=== PATIENT | female | born 1975 | race Caucasian/White ===

== ENCOUNTER 2017-04-21 22:28 | Emergency (ER) | payer MEDICAID ==
[~2017-04-21] VITALS: Ht 149.9 cm; Wt 43.1 kg
[~2017-04-21 22:28] MED LIST: CABERGOLINE0.5 MG PO; CEPHALEXIN250 MG PO; CIPROFLOXACIN500 M2 ORAL; IBUPROFEN400 MG ORAL; MAALOX MAXIMUM355 M1 PO; METRONIDAZOLE500 MG ORAL; NAPROXEN500 M2 ORAL; NORCO 5-325 TA1 EACH ORAL; RANITIDINE HCL150 MG ORAL; UNOBMED; ZOFRAN ODT4 MG ORAL
[2017-04-21 22:45] VITALS: BP 107/75
[2017-04-21] MEDS ORDERED: ATARAX50 MG ORAL (22:52)
--- NOTE | 2017-04-21 22:59 | Emergency Room Report ---
History of Present Illness General Chief Complaint: Skin Rash/Abscess Source: Patient Present Illness HPI 41-year-old female, no significant past medical history, presenting with itchy rash body or 5 days. Patient states the rash was on chest and arms, states it is very itchy. She has been using Benadryl and a cream [id number] without much relief. No respiratory symptoms, no difficulty breathing or throat swelling. No fever no chills. No sick contacts or recent travel. No new detergents Allergies: Coded Allergies: No Known Allergies (Unverified , 08/01/12) Patient History Past Medical History: see triage record Past Surgical History: none Pertinent Family History: none Reviewed Nursing Documentation: PMH: Agreed, PSxH: Agreed Nursing Documentation-PMH Hx Cardiac Problems: No - HYSTERECTOMY, GALLBLADDER STONES, Review of Systems All Other Systems: negative except mentioned in HPI Physical Exam Vital Signs Date Time Temp Pulse Resp B/P (MAP) Pulse Ox O2 Delivery O2 Flow Rate FiO2 04/21/17 22:31 98.2 69 16 107/75 98 Room Air Sp02 EP Interpretation: reviewed, normal General Appearance: normal inspection, well appearing, no apparent distress, alert, GCS 15, non-toxic Head: normocephalic, atraumatic Eyes: bilateral eye normal inspection, bilateral eye PERRL, bilateral eye EOMI ENT: normal ENT inspection, normal pharynx, normal voice, moist mucus membranes Neck: normal inspection, full range of motion, supple Respiratory: normal inspection, lungs clear, normal breath sounds, no respiratory distress, no retraction, no wheezing, speaking full sentences, chest symmetrical Cardiovascular #1: normal inspection, regular rate, rhythm, normal capillary refill Cardiovascular #2: 2+ radial (R), 2+ radial (L) Gastrointestinal: normal inspection, non tender, soft, non-distended, no guarding Musculoskeletal: normal inspection, back normal, normal range of motion, non- tender Neurologic: normal inspection, alert, oriented x3, responsive, motor strength/ tone normal, sensory intact, normal gait, speech normal Psychiatric: normal inspection, judgement/insight normal, memory normal Skin: warm/dry, well hydrated, normal turgor, other - Macular scaly rash noted on the forearms and chest, small and circular, less than 1 cm, nontender, pruritic scratch [place] noted. No purulent drainage. No signs of cellulitis Medical Decision Making Diagnostic Impression: Primary Impression: Rash and nonspecific skin eruption ER Course 41-year-old female with a rash to arms and chest for 5 days DDX: Nonspecific itchy rash: Eczema, allergic reaction Plan: Hydroxyzine, Decadron ER course: Patient has remained stable during ED stay. No respiratory symptoms, patient does not appear toxic Disposition: Patient is to be discharged to home. Prescriptions given are hydroxyzine Patient is instructed to follow up with their primary care doctor within 5 days. Strict return precautions discussed with patient such as fever, chills, worsening/severe rash, swelling of throat SOB, nausea, vomiting, which may indicate severe illness. Patient verbalizes understanding and agrees with plan. Please note that this Emergency Department Report was dictated using [employer] technology software, occasionally this can lead to erroneous entry secondary to interpretation by the dictation equipment Last Vital Signs Date Time Temp Pulse Resp B/P (MAP) Pulse Ox O2 Delivery O2 Flow Rate FiO2 04/21/17 22:31 98.2 69 16 107/75 98 Room Air Disposition: HOME, SELF-CARE Condition: Improved Scripts Hydroxyzine HCl (Hydroxyzine Pamoate) 50 Mg Capsule 50 MG ORAL FOUR TIMES A DAY, #30 TAB 0 Refills Prov: Christiano Manuel M.D. 04/21/17 Patient Instructions: Rash Additional Instructions: Please followup with your doctor in one week without fail Christiano Manuel M.D. Apr 21, 2017 22:59
[2017-04-21] MEDS ORDERED: HydrOXYzine tab 25 MG TAB ORAL ONE (23:00)
[2017-04-21] MEDS ORDERED: Dexamethasone 4mg/ml vial IM ONE (23:00)
[2017-04-21 23:05] VITALS: BP 107/75
[2017-04-22 02:39] VITALS: BP 107/75
== END 2017-04-21 23:05 | disposition home or self-care (01) ==
LOC: EMR 22:43
DX: R21 Rash and other nonspecific skin eruption (principal); Z90.710 Acquired absence of both cervix and uterus
CPT/HCPCS: 96372; 99283; J1100

== ENCOUNTER 2017-08-25 23:51 | Emergency (ER) | payer MEDICAID ==
[~2017-08-25] VITALS: Ht 153 cm; Wt 45.4 kg
[~2017-08-25 23:51] MED LIST changes: +ATARAX50 MG ORAL
[2017-08-26] MEDS ORDERED: NKM
[2017-08-26 00:12] VITALS: BP 123/78
[2017-08-26] MEDS ORDERED: PREDNISONE20 MG ORAL (00:29)
[2017-08-26] MEDS ORDERED: IBUPROFEN600 MG ORAL (00:29)
--- NOTE | 2017-08-26 00:29 | Emergency Room Report ---
History of Present Illness General Chief Complaint: Pain Source: Patient Present Illness HPI This is a 42-year-old female with no past medical history. She presents with chief complaint of arm pain. Onset last night. She said that both arms are swollen. No itching. Just painful. Also with throat pain and back pain. No fever chills but no cough or congestion. Denies any trauma. Pain was 8 out of 10. Allergies: Coded Allergies: No Known Allergies (Unverified , 08/01/12) Patient History Past Medical History: see triage record, old chart reviewed Past Surgical History: none Pertinent Family History: none Social History: Denies: smoking Now: No Immunizations: other Reviewed Nursing Documentation: PMH: Agreed; PSxH: Agreed Nursing Documentation-PMH Hx Cardiac Problems: No - HYSTERECTOMY, GALLBLADDER STONES, Review of Systems Eye: Denies: eye pain, blurred vision ENT: Denies: ear pain, nose congestion, throat swelling Respiratory: Denies: cough, shortness of breath Cardiovascular: Denies: chest pain, palpitations Gastrointestinal: Denies: abdominal pain, diarrhea, nausea, vomiting Musculoskeletal: Reports: muscle pain; Denies: back pain, joint pain Skin: Denies: rash Neurological: Denies: headache, numbness Endocrine: Denies: increased thirst, increased urine Hematologic/Lymphatic: Denies: easy bruising All Other Systems: negative except mentioned in HPI Physical Exam Vital Signs Date Time Temp Pulse Resp B/P (MAP) Pulse Ox O2 Delivery O2 Flow Rate FiO2 08/25/17 23:55 97.4 62 16 123/78 97 Room Air 97.3 vitals normal Sp02 EP Interpretation: reviewed, normal General Appearance: well appearing, no apparent distress, alert Head: normocephalic, atraumatic Eyes: bilateral eye PERRL, bilateral eye EOMI ENT: hearing grossly normal, normal pharynx Neck: full range of motion, supple, no meningismus Respiratory: chest non-tender, lungs clear, normal breath sounds Cardiovascular #1: regular rate, rhythm, no murmur Gastrointestinal: normal bowel sounds, non tender, no mass, no organomegaly, no bruit, non-distended Musculoskeletal: back normal, gait/station normal, normal range of motion Psychiatric: mood/affect normal Skin: warm/dry Medical Decision Making Diagnostic Impression: Primary Impression: Myalgia ER Course Patient presents with myalgia. No evidence of infection. This could be rheumatological in nature. Could be viral infection. No evidence of bacterial infection. We'll discharge home. Last Vital Signs Date Time Temp Pulse Resp B/P (MAP) Pulse Ox O2 Delivery O2 Flow Rate FiO2 08/26/17 00:16 97.3 08/26/17 00:12 62 16 123/78 97 Room Air Status: improved Disposition: HOME, SELF-CARE Condition: Stable Scripts Prednisone* (PREDNISONE*) 20 Mg Tablet 40 MG ORAL DAILY, #10 TAB Prov: NEL HADDAD M.D. 08/26/17 Ibuprofen* (MOTRIN*) 600 Mg Tablet 600 MG ORAL THREE TIMES A DAY, #30 TAB 0 Refills Prov: NLE HADDAD M.D. 08/26/17 Referrals: NOT CHOSEN [facility]/,REFERRING (PCP) Additional Instructions: Follow-up with your doctor in 7 days. Return if symptom worsen. NEL HADDAD M.D. August 26, 2017 00:29
[2017-08-26 00:40] VITALS: BP 123/78
== END 2017-08-26 00:41 | disposition home or self-care (01) ==
LOC: EMR 08-26 00:19
DX: M79.1 Myalgia (principal); Z90.710 Acquired absence of both cervix and uterus
CPT/HCPCS: 99284

== ENCOUNTER 2018-12-28 10:40 | Emergency (ER) | payer MEDICAID ==
[~2018-12-28] VITALS: Ht 149.9 cm; Wt 49.9 kg
[~2018-12-28 10:40] MED LIST changes: +IBUPROFEN600 MG ORAL; +NKM; +PREDNISONE20 MG ORAL
[2018-12-28 11:12] VITALS: BP 104/63
--- NOTE | 2018-12-28 12:07 | Diagnostic Imaging Report ---
Indication: pain in finger. trauma Findings: 3 views of the right thumb obtained. No acute fractures, malalignment, erosions, or periosteal reaction are seen. Soft tissues are unremarkable. Impression: No acute findings.
--- NOTE | 2018-12-28 12:19 | Emergency Room Report ---
History of Present Illness General Chief Complaint: Upper Extremity Injury Source: Patient Present Illness HPI 43-year-old female with no significant past medical history here with her daughter complaining of 1 week of pain and swelling in her right thumb. Her finger was smashed in the car door 1 week ago. Subungual hematoma is noted however is dried blood. Nailbed still attached. Patient is rating the pain 10 out of 10 without radiation. Denies tingling and numbness. Has not taken medication for pain. Has full range of motion. Denies chest pain, shortness of breath, palpitation, or other associated symptoms. No signs of infection noted Allergies: Coded Allergies: No Known Allergies (Unverified , 08/01/12) Patient History Past Medical History: see triage record Past Surgical History: unable to obtain Pertinent Family History: none Now: No Immunizations: UTD Reviewed Nursing Documentation: PMH: Agreed; PSxH: Agreed Nursing Documentation-PMH Past Medical History: No History, Except For Hx Cardiac Problems: No - HYSTERECTOMY, GALLBLADDER STONES, Review of Systems All Other Systems: negative except mentioned in HPI Physical Exam Vital Signs Date Time Temp Pulse Resp B/P (MAP) Pulse Ox O2 Delivery O2 Flow Rate FiO2 12/28/18 10:51 98.4 67 15 104/63 (77) 99 Room Air Sp02 EP Interpretation: reviewed, normal General Appearance: no apparent distress, alert, GCS 15, non-toxic Head: normocephalic, atraumatic Eyes: bilateral eye normal inspection, bilateral eye PERRL ENT: hearing grossly normal, normal pharynx, no angioedema, normal voice Neck: full range of motion, supple/symm/no masses Respiratory: chest non-tender, lungs clear, normal breath sounds, speaking full sentences Cardiovascular #1: regular rate, rhythm, no edema Cardiovascular #2: 2+ radial (R), 2+ radial (L) Gastrointestinal: normal bowel sounds, non tender, soft, non-distended, no guarding, no rebound Genitourinary: normal inspection, no CVA tenderness Musculoskeletal: back normal, gait/station normal, normal range of motion, non- tender, no calf tenderness, other - Subungual hematoma of right thumb with dried blood, and right thumb tender to palpation at DIP Neurologic: alert, oriented x3, responsive, motor strength/tone normal, sensory intact, speech normal Psychiatric: judgement/insight normal, memory normal, mood/affect normal, no suicidal/homicidal ideation Skin: no rash, other - Subungual hematoma right thumb Lymphatic: no adenopathy Procedures Splinting Splinting : Consent: Verbal Location: Thumb Hand-Made Type: plaster Splint: thumb spica Pre-Proc Neuro Vasc Exam: normal Post-Proc Neuro Vasc Exam: normal Patient Tolerated: Well Complications: None Additional Procedure Procedure Narrative Subungual hematoma release Medical Decision Making PA Attestation All my diagnosis and treatment plans were reviewed ad discussed with my supervising physician Dr. Montero Diagnostic Impression: Primary Impression: Subungual hematoma Additional Impressions: Thumb fracture Crushing injury of finger ER Course 43-year-old female with no significant past medical history here with her daughter complaining of 1 week of pain and swelling in her right thumb. Her finger was smashed in the car door 1 week ago. Subungual hematoma is noted however is dried blood. Nailbed still attached. Patient is rating the pain 10 out of 10 without radiation. Denies tingling and numbness. Has not taken medication for pain. Has full range of motion. Denies chest pain, shortness of breath, palpitation, or other associated symptoms. No signs of infection noted Ddx considered but are not limited to : Finger fracture versus crushing injury versus sprain versus strain versus subungual hematoma Vital signs: are WNL, pt. is afebrile H&PE are most consistent with:Subungual hematoma from fracture ORDERS: Finger x-ray, ibuprofen, Tylenol 3 ED INTERVENTIONS: Thumb spica, subungual hematoma release DISCHARGE: At this time pt. is stable for d/c to home. Will provide printed patient care instructions, and any necessary prescriptions. Care plan and follow up instructions have been discussed with the patient prior to discharge. Patient to follow-up with claim benefit specialist keep splint on if worsening symptoms return to emergency room Other X-Ray Diagnostic Results Other X-Ray Diagnostic Results : X-Ray ordered: Right thumb # of Views/Limited Vs Complete: 3 View Indication: Pain EP Interpretation: Yes PA Xray: Interpretation reviewed, by supervising MD, and agrees with findings. Interpretation: no dislocation, no soft tissue swelling, other - Possible fracture of right thumb at the DIP Impression: Other - Fracture of right thumb at the DIP Electronically Signed by: Scotty Weinberg PA-C Last Vital Signs Date Time Temp Pulse Resp B/P (MAP) Pulse Ox O2 Delivery O2 Flow Rate FiO2 12/28/18 11:12 98.4 87 15 104/63 99 Room Air Disposition: HOME, SELF-CARE Condition: Stable Scripts Ibuprofen (Ibu) 800 Mg Tablet 800 MG PO TID, #30 TAB Prov: Scotty Concepcion 12/28/18 Acetaminophen With Codeine (T#3) (TYLENOL #3 TAB*) Y Tab 1 TAB ORAL BEDTIME PRN for For Pain for 4 Days, #4 TAB Prov: Scotty Concepcion 12/28/18 Referrals: NOT CHOSEN [facility]/,REFERRING (PCP) Patient Instructions: Finger Fracture, [id number], Subungual Hematoma, Easy- to-Read Additional Instructions: Take medication as directed follow-up with your primary care provider and or so if worsening symptoms return to the emergency room Scotty Concepcion Dec 28, 2018 12:19
[2018-12-28] MEDS ORDERED: ACETAMINOPHEN-1 EAC1 ORAL (12:20)
[2018-12-28] MEDS ORDERED: IBU800 MG PO (12:20)
[2018-12-28 12:30] VITALS: BP 104/63
== END 2018-12-28 12:30 | disposition home or self-care (01) ==
LOC: EMR 11:13
DX: S62.521A Displaced fracture of distal phalanx of right thumb, initial encounter for closed fracture (principal); S60.111A Contusion of right thumb with damage to nail, initial encounter; Z90.710 Acquired absence of both cervix and uterus; W23.0XXA Caught, crushed, jammed, or pinched between moving objects, initial encounter; Y92.810 Car as the place of occurrence of the external cause
CPT/HCPCS: 11740; 29125; 73140; Z7502; 29130; 99283

== ENCOUNTER 2019-02-11 17:48 | Emergency (ER) | payer MEDICAID ==
[~2019-02-11] VITALS: Ht 144.8 cm; Wt 45.4 kg
[~2019-02-11 17:48] MED LIST changes: +ACETAMINOPHEN-1 EAC1 ORAL; +IBU800 MG PO
[2019-02-11] MEDS ORDERED: FOLIC ACID0.4 MG ORAL (17:55)
[2019-02-11] MEDS ORDERED: VITAMIN D400 INTLU ORAL (17:55)
[2019-02-11] MEDS ORDERED: VITAMIN C500 M1 ORAL (17:55)
[2019-02-11 18:01] VITALS: BP 120/63
--- NOTE | 2019-02-11 18:02 | NUR ---
ED Nurse Note: pt walked in to ED due to headache and back pain for last 3 days. denies any trauma or injury. pt also c/o nausea. AAO x4. respirations even and non-labored noted. pt feels better with dim light. will wait for the further order.
[2019-02-11] MEDS ORDERED: DiphenhydrAMINE 50mg/ml Inj IVP ONE (18:45)
--- NOTE | 2019-02-11 19:03 | NUR ---
HAND-OFF: Report given to LU andersen.
--- NOTE | 2019-02-11 19:41 | NUR ---
ED Nurse Note:urine sent to labs
[2019-02-11 19:54] LABS: APPEARANCE,URINE CLEAR; BILIRUBIN, URINE NEGATIVE (NEGATIVE); COLOR,URINE PALE YELLOW; GLUCOSE, URINE (UA) NEGATIVE (NEGATIVE); KETONES,URINE NEGATIVE (NEGATIVE); LEUKOCYTE ESTERASE ,URINE NEGATIVE (NEGATIVE); NITRITE,URINE NEGATIVE (NEGATIVE); PH,URINE 6 (4.5-8.0); PROTEIN,URINE NEGATIVE (NEGATIVE); UROBILINOGEN,URINE NORMAL MG/DL (0.0-1.0)
--- NOTE | 2019-02-11 20:10 | Emergency Room Report ---
History of Present Illness General Chief Complaint: Headache Source: Patient Present Illness HPI 43-year-old female presents to the emergency department complaining of 6 out of 10 severity headache x2 days in addition to body aches primarily in her back and neck. Patient denies neck stiffness, fevers or chills. Patient reports some photophobia as well as hyperacusis. Patient reports she has a history of pituitary tumor which was diagnosed 2 years ago and states that she has been having follow-up and was told that it is a small tumor. Patient states her last MRI was 3 months ago. Patient reports generalized weakness she denies cough, nasal congestion or rhinorrhea. She reports for the last 3 days she has had nausea, decrease of appetite and increasing fatigue. Patient denies vomiting she reports some dizziness upon standing but denies vertigo. She denies urinary frequency, urgency, dysuria or hematuria. She denies sudden onset of her symptoms and states that her symptoms slowly progressed. She reports fatigue was her initial symptom. She denies or suspicion for . She reports hx of HTN, and hysterectomy s/p uterine cancer. Denies night sweats or significant changes in weight. Allergies: Coded Allergies: No Known Allergies (Unverified , 08/01/12) Patient History Past Medical History: see triage record Past Surgical History: none Pertinent Family History: none Now: No Reviewed Nursing Documentation: PMH: Agreed; PSxH: Agreed Nursing Documentation-PMH Hx Cardiac Problems: No - HYSTERECTOMY, GALLBLADDER STONES, Review of Systems All Other Systems: negative except mentioned in HPI Physical Exam Vital Signs Date Time Temp Pulse Resp B/P (MAP) Pulse Ox O2 Delivery O2 Flow Rate FiO2 02/11/19 17:52 97.9 70 15 120/63 (82) 99 Room Air Sp02 EP Interpretation: reviewed, normal General Appearance: no apparent distress, alert, GCS 15, non-toxic Head: normocephalic, atraumatic Eyes: bilateral eye normal inspection, bilateral eye PERRL, bilateral eye EOMI , bilateral eye other - eyes able to cross midline, no nystagmus ENT: hearing grossly normal, normal voice Neck: full range of motion, no meningismus Respiratory: lungs clear, normal breath sounds, speaking full sentences Cardiovascular #1: regular rate, rhythm Gastrointestinal: normal bowel sounds, non tender, soft, non-distended, no guarding Genitourinary: normal inspection, no CVA tenderness Musculoskeletal: back normal, gait/station normal, normal range of motion, non- tender, other - normal straight leg raise. Neurologic: alert, oriented x3, responsive, motor strength/tone normal, sensory intact, normal gait, speech normal, grossly normal Psychiatric: judgement/insight normal Skin: no rash, normal inspection, warm/dry Lymphatic: no adenopathy Medical Decision Making PA Attestation Dr. Pierre is my supervising Physician whom patient management has been discussed with. Diagnostic Impression: Primary Impression: Headache Qualified Codes: R51 - Headache Additional Impressions: Body aches History of pituitary tumor ER Course 43-year-old female presents to the emergency department complaining of 6 out of 10 severity headache x2 days in addition to body aches primarily in her back and neck. Patient denies neck stiffness, fevers or chills. Patient reports some photophobia as well as hyperacusis. Patient reports she has a history of pituitary tumor which was diagnosed 2 years ago and states that she has been having follow-up and was told that it is a small tumor. Patient states her last MRI was 3 months ago. Patient reports generalized weakness she denies cough, nasal congestion or rhinorrhea. She reports for the last 3 days she has had nausea, decrease of appetite and increasing fatigue. Patient denies vomiting she reports some dizziness upon standing but denies vertigo. She denies urinary frequency, urgency, dysuria or hematuria. She denies sudden onset of her symptoms and states that her symptoms slowly progressed. She reports fatigue was her initial symptom. She denies or suspicion for . She reports hx of HTN, and hysterectomy s/p uterine cancer. Denies night sweats or significant changes in weight. Ddx considered but are not limited to migraine, SAH, Pseudomotor Cerebri,, Mass lesion, Cluster TOMLINSON, Tension TOMLINSON, Post lumbar puncture TOMLINSON. Vital signs: are WNL, pt. is afebrile H&PE are most consistent with migraine headache ORDERS: - UA: WNL -Urine Hcg: Negative Imaging discussed with pt. No focal neurological deficits. collaborative decision with pt. to defer CT imaging, will re-evaluate need after ED interventions. ED INTERVENTIONS: -1 Liter NS -Zofran 4mg IV - Compazine PO -IV Toradol -Benadryl IV -Excedrin Migraine Patient reports that with above interventions her pain has completely resolved. Patient states that she is feeling much better and feels comfortable going home and continuing any evaluation or care as an outpatient. Patient was given strict ED return precautions for worsening or new symptoms. DISCHARGE: At this time pt. is stable for d/c to home. Will provide printed patient care instructions, and any necessary prescriptions. Care plan and follow up instructions have been discussed with the patient prior to discharge. Labs Test 02/11/19 19:30 Urine Color Pale yellow Urine Appearance Clear Urine pH 6 (4.5-8.0) Urine Specific Jean 1.010 (1.005-1.035) Urine Protein Negative (NEGATIVE) Urine Glucose (UA) Negative (NEGATIVE) Urine Ketones Negative (NEGATIVE) Urine Blood Negative (NEGATIVE) Urine Nitrite Negative (NEGATIVE) Urine Bilirubin Negative (NEGATIVE) Urine Urobilinogen Normal MG/DL (0.0-1.0) Urine Leukocyte Esterase Negative (NEGATIVE) Urine HCG, Qualitative Negative (NEGATIVE) Last Vital Signs Date Time Temp Pulse Resp B/P (MAP) Pulse Ox O2 Delivery O2 Flow Rate FiO2 02/11/19 18:01 97.9 70 15 120/63 99 Room Air Disposition: HOME, SELF-CARE Condition: Stable Scripts Aspirin/Acetaminophen/Caffeine (EXCEDRIN MIGRAINE GELTAB) 1 Each Tablet 1 EACH PO Q6HR for for Headaches, #30 TAB Prov: Lulú Hernández 02/11/19 Referrals: NOT CHOSEN [facility]/MD,REFERRING (PCP) Departure Forms: Return to Work Return to Work Date: Feb 15, 2019 Work Restrictions: None Other Restrictions: May return Sooner if Symptoms have resolved. Return to Full Activity: Feb 15, 2019 Patient Instructions: General Headache Without Cause Additional Instructions: Take medications as directed. Follow up with a Primary Care Provider in 3-5 days For a referral to have NEUROLOGIST Evaluation, even if your symptoms have resolved. --Please review list of primary care clinics, if you do not already have a primary care provider Return sooner to ED if new symptoms occur, or current symptoms become worse. - Please note that this Emergency Department Report was dictated using [employer] technology software, occasionally this can lead to erroneous entry secondary to interpretation by the dictation equipment. Lulú Hernández Feb 11, 2019 20:10
[2019-02-11] MEDS ORDERED: EXCEDRIN MIGRA1 EACH PO (20:11)
[2019-02-11] MEDS ORDERED: Excedrin Migraine tab ORAL ONE (20:15)
[2019-02-11 20:30] VITALS: BP 120/63
--- NOTE | 2019-02-11 20:30 | NUR ---
ER DISCHARGE NOTE: Patient is cleared to be discharged per ERMD, pt is aox4, on room air, with stable vital signs. pt was given dc and prescription instructions, pt was able to verbalize understanding, pt id band and iv site removed without complications. pt is able to ambulate with steady gait. pt took all belongings.
== END 2019-02-11 20:30 | disposition home or self-care (01) ==
LOC: EMR 18:20
DX: R51 Headache (principal); M79.10 Myalgia, unspecified site; Z86.03 Personal history of neoplasm of uncertain behavior; Z90.710 Acquired absence of both cervix and uterus; I10 Essential (primary) hypertension; D44.3 Neoplasm of uncertain behavior of pituitary gland; Z85.42 Personal history of malignant neoplasm of other parts of uterus; Z32.02 Encounter for pregnancy test, result negative
CPT/HCPCS: 81003; 81025; 96361; 96374; J1200; Z7502; 99284; J7030

== ENCOUNTER 2019-06-02 21:04 | Emergency (ER) | payer MEDICAID ==
[~2019-06-02] VITALS: Ht 127 cm; Wt 38.6 kg
[~2019-06-02 21:04] MED LIST changes: +EXCEDRIN MIGRA1 EACH PO; +FOLIC ACID0.4 MG ORAL; +VITAMIN C500 M1 ORAL; +VITAMIN D400 INTLU ORAL
[2019-06-02 21:23] VITALS: BP 128/72
--- NOTE | 2019-06-02 21:23 | NUR ---
ED Nurse Note: Patient walked into ED from home d/t right lower leg shooting pain from hip to lower leg. Patient aao x 4 and ambulatory. Patient states walking and doing any activity is painful. Patient rates pain 10/10. Patient stable upon assessment.
--- NOTE | 2019-06-02 21:39 | NUR ---
ED Nurse Note: ERMD at bedside.
--- NOTE | 2019-06-02 21:55 | NUR ---
ED Nurse Note: Right AC 20g IV initiated, asymptomatic, intact, and patent. Blood sample, urine, and flu swab collected and sent to lab.
[2019-06-02 22:09] LABS: BASOPHILS % (AUTO) 0.8 % (0.0-2.0); EOSINOPHILS % (AUTO) 0.7 % (0.0-3.0); HEMATOCRIT 40.5 % (37.0-47.0); HEMOGLOBIN 13.8 G/DL (12.0-16.0); LYMPHOCYTES % (AUTO) 26.4 % (20.0-45.0); MEAN CORPUSCULAR VOLUME 90 FL (80-99); MONOCYTES % (AUTO) 5.5 % (1.0-10.0); NEUTROPHILS % (AUTO) 66.6 % (45.0-75.0); PLATELET COUNT 266 K/UL (150-450); RED BLOOD COUNT 4.48 M/UL (4.20-5.40); RED CELL DISTRIBUTION WIDTH 11.7 % (11.6-14.8); WHITE BLOOD COUNT 11.1 K/UL (4.8-10.8)
[2019-06-02 22:12] LABS: APPEARANCE,URINE CLEAR; BILIRUBIN, URINE NEGATIVE (NEGATIVE); COLOR,URINE PALE YELLOW; GLUCOSE, URINE (UA) NEGATIVE (NEGATIVE); KETONES,URINE NEGATIVE (NEGATIVE); LEUKOCYTE ESTERASE ,URINE NEGATIVE (NEGATIVE); NITRITE,URINE NEGATIVE (NEGATIVE); PH,URINE 6 (4.5-8.0); PROTEIN,URINE NEGATIVE (NEGATIVE); UROBILINOGEN,URINE NORMAL MG/DL (0.0-1.0)
--- NOTE | 2019-06-02 22:25 | Emergency Room Report ---
History of Present Illness General Chief Complaint: Lower Back Pain or Injury Source: Patient Present Illness HPI Patient is a 43-year-old female presents after increased lower back pain. Patient ports of increased pain to the right lower right side of the back radiating to the leg. Reports having subjective fever and chills associated with nausea and vomiting. Prior history of cholecystectomy as well as hysterectomy due to cancer. Allergies: Coded Allergies: No Known Allergies (Unverified , 08/01/12) Patient History Past Medical History: see triage record Now: No Reviewed Nursing Documentation: PMH: Agreed; PSxH: Agreed Nursing Documentation-PMH Past Medical History: No Stated History Hx Cardiac Problems: No - HYSTERECTOMY, GALLBLADDER STONES, Review of Systems All Other Systems: negative except mentioned in HPI Physical Exam Vital Signs Date Time Temp Pulse Resp B/P (MAP) Pulse Ox O2 Delivery O2 Flow Rate FiO2 06/02/19 21:18 97.9 69 18 126/74 (91) 99 Room Air General Appearance: well appearing, mild distress Head: normocephalic, atraumatic ENT: hearing grossly normal, normal voice Neck: full range of motion, supple Respiratory: no respiratory distress, speaking full sentences Cardiovascular #1: normal inspection Gastrointestinal: normal inspection, normal bowel sounds, non tender, soft Musculoskeletal: normal inspection Neurologic: alert, motor strength/tone normal, 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 Differential diagnosis include was not limited to renal colic, muscular back pain, viral gastroenteritis, bowel obstruction among others. Because of complexity of patient's case laboratory tests and imaging studies were ordered. Patient appears to have a viral gastroenteritis. She was given a note for work. 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 CT imaging read by radiology showed no evidence of acute obstruction or stone. Patient will be discharged home. She was advised to follow-up with her primary care physician for recheck in 1 to 2 days. She advised to return if worse. This medical record is generated with [employer] knowledge management advisor software. There may be some knowledge management advisor discrepancies related to use of this software Labs Test 06/02/19 21:50 White Blood Count 11.1 K/UL (4.8-10.8) Red Blood Count 4.48 M/UL (4.20-5.40) Hemoglobin 13.8 G/DL (12.0-16.0) Hematocrit 40.5 % (37.0-47.0) Mean Corpuscular Volume 90 FL (80-99) Mean Corpuscular Hemoglobin 30.7 PG (27.0-31.0) Mean Corpuscular Hemoglobin Concent 34.0 G/DL (32.0-36.0) Red Cell Distribution Width 11.7 % (11.6-14.8) Platelet Count 266 K/UL (150-450) Mean Platelet Volume 10.1 FL (6.5-10.1) Neutrophils (%) (Auto) 66.6 % (45.0-75.0) Lymphocytes (%) (Auto) 26.4 % (20.0-45.0) Monocytes (%) (Auto) 5.5 % (1.0-10.0) Eosinophils (%) (Auto) 0.7 % (0.0-3.0) Basophils (%) (Auto) 0.8 % (0.0-2.0) Urine Color Pale yellow Urine Appearance Clear Urine pH 6 (4.5-8.0) Urine Specific [place] 1.010 (1.005-1.035) Urine Protein Negative (NEGATIVE) Urine Glucose (UA) Negative (NEGATIVE) Urine Ketones Negative (NEGATIVE) Urine Blood Negative (NEGATIVE) Urine Nitrite Negative (NEGATIVE) Urine Bilirubin Negative (NEGATIVE) Urine Urobilinogen Normal MG/DL (0.0-1.0) Urine Leukocyte Esterase Negative (NEGATIVE) Urine RBC 0-2 /HPF (0 - 2) Urine WBC 2-4 /HPF (0 - 2) Urine Squamous Epithelial Cells Moderate /LPF (NONE/OCC) Urine Bacteria Few /HPF (NONE) Urine HCG, Qualitative Negative (NEGATIVE) Sodium Level 142 MMOL/L (136-145) Potassium Level 3.9 MMOL/L (3.5-5.1) Chloride Level 104 MMOL/L (98-107) Carbon Dioxide Level 27 MMOL/L (21-32) Anion Gap 11 mmol/L (5-15) Blood Urea Nitrogen 10 mg/dL (7-18) Creatinine 0.6 MG/DL (0.55-1.30) Estimat Glomerular Filtration Rate > 60 mL/min (>60) Glucose Level 98 MG/DL (74-106) Calcium Level 9.9 MG/DL (8.5-10.1) Total Bilirubin 0.2 MG/DL (0.2-1.0) Aspartate Amino Transf (AST/SGOT) 13 U/L (15-37) Alanine Aminotransferase (ALT/SGPT) 21 U/L (12-78) Alkaline Phosphatase 74 U/L (46-116) Total Protein 8.8 G/DL (6.4-8.2) Albumin 4.4 G/DL (3.4-5.0) Globulin 4.4 g/dL Albumin/Globulin Ratio 1.0 (1.0-2.7) Last Vital Signs Date Time Temp Pulse Resp B/P (MAP) Pulse Ox O2 Delivery O2 Flow Rate FiO2 06/02/19 21:23 97.9 78 17 128/72 98 Room Air Status: improved Disposition: HOME, SELF-CARE Condition: Stable Scripts Famotidine* (Pepcid 20mg tablet*) 20 Mg Tablet 20 MG ORAL DAILY, #30 TAB 0 Refills Prov: Eric Guerrero MD 06/02/19 Ondansetron Odt* (ZOFRAN ODT*) 4 Mg Tab.rapdis 4 MG BC EVERY 6 HOURS PRN for Nausea & Vomiting, #10 TAB 0 Refills Prov: Eric Guerrero MD 06/02/19 Referrals: NOT CHOSEN [facility]/,REFERRING (PCP) Eric Guerrero MD Jun 02, 2019 22:25
[2019-06-02] MEDS ORDERED: Ketorolac 30mg Inj IV ONE (22:30)
[2019-06-02] MEDS ORDERED: Omnipaque-300 100ml vial INJ PRN (22:30)
[2019-06-02 22:41] LABS: ANION GAP 11 mmol/L (5-15); BLOOD UREA NITROGEN 10 mg/dL (7-18); CALCIUM 9.9 MG/DL (8.5-10.1); CARBON DIOXIDE 27 MMOL/L (21-32); CHLORIDE 104 MMOL/L (98-107); CREATININE 0.6 MG/DL (0.55-1.30); POTASSIUM 3.9 MMOL/L (3.5-5.1); SODIUM 142 MMOL/L (136-145)
[2019-06-02 22:46] LABS: ALANINE AMINOTRANSFERASE 21 U/L (12-78); ALBUMIN 4.4 G/DL (3.4-5.0); ALKALINE PHOSPHATASE 74 U/L (46-116); ASPARTATE AMINO TRANSFERASE 13 U/L (15-37); BILIRUBIN,TOTAL 0.2 MG/DL (0.2-1.0)
--- NOTE | 2019-06-02 23:04 | NUR ---
ED Nurse Note: Patient taken to CT in stable condition.
--- NOTE | 2019-06-02 23:42 | Diagnostic Imaging Report ---
Clinical Indication: Lower back pain, fever, chills, nausea, vomiting Technique: No oral contrast utilized, per emergency room physician request IV administration nonionic contrast. Venous phase spiral acquisition obtained through the abdomen and pelvis. Multiplanar reconstructions were generated. Total dose length product 144 mGycm. CTDIvol(s) 2 mGy. Dose reduction achieved using automated exposure control Comparison: 10/01/2014 Findings: The appendix is normal. There is no evidence of colonic diverticulosis or diverticulitis. Distal small bowel loops are mildly prominent in caliber and fluid-filled. Previously demonstrated distal small bowel wall thickening is not evident, however. There is a single prominent slightly thick walled proximal jejunal loop in the left upper quadrant. No free or loculated intraperitoneal gas or fluid is evident. Distal esophagus, stomach, duodenum are unremarkable. The gallbladder has been removed. The liver, bile ducts, pancreas, spleen, adrenals, kidneys are all unremarkable. No retroperitoneal or mesenteric mass or adenopathy. The uterus is absent. The bones are unremarkable. The included lung bases are clear.. Impression: Questionably mildly prominent filled distal small bowel loops and very questionable slightly thick walled left upper quadrant jejunal loop, of doubtful significance but could indicate mild enteritis changes if real. No other acute abnormality otherwise Evidence of prior cholecystectomy and hysterectomy, also previously reported This essentially agrees with the preliminary interpretation provided overnight by [facility] teleradiology service. The CT scanner at [facility] is accredited by the [employer] and the scans are performed using protocols designed to limit radiation exposure to as low as reasonably achievable to attain images of sufficient resolution adequate for diagnostic evaluation.
[2019-06-02] MEDS ORDERED: ONDANSETRON ODT4 MG BC (23:48)
[2019-06-02] MEDS ORDERED: FAMOTIDINE20 MG ORAL (23:48)
[2019-06-02 23:53] VITALS: BP 132/85
--- NOTE | 2019-06-02 23:53 | NUR ---
ER DISCHARGE NOTE: Patient is cleared to be discharged per ERMD, pt is aox4, on room air, with stable vital signs. pt was given dc and prescription instructions, pt was able to verbalize understanding, pt id band and iv site removed intact without complications. pt is able to ambulate with steady gait. pt took all belongings. pt stable upon discharge.
== END 2019-06-02 23:53 | disposition home or self-care (01) ==
LOC: EMR 21:45
DX: R10.9 Unspecified abdominal pain (principal)
CPT/HCPCS: 36415; 74177; 80053; 81001; 81025; 85025; 86710; 96374; 96375; J1885; J2405; Q9967; Z7502; 99284

== ENCOUNTER 2020-03-19 14:31 | Emergency (ER) | payer MEDICAID ==
[~2020-03-19] VITALS: Ht 149.9 cm; Wt 45.4 kg
[~2020-03-19 14:31] MED LIST changes: +FAMOTIDINE20 MG ORAL; +ONDANSETRON ODT4 MG BC
[2020-03-19 15:03] VITALS: BP 113/68
--- NOTE | 2020-03-19 15:06 | NUR ---
ED Nurse Note:pt. had object falling on her head ,has lacerarion on right side, no bleeding
[2020-03-19] MEDS ORDERED: Bacitracin Oint UD TOPIC ONE (15:15)
--- NOTE | 2020-03-19 16:07 | Diagnostic Imaging Report ---
CT HEAD WITHOUT CONTRAST INDICATION: Reason For Exam: Head pain after TRAUMA Technique: Continuous helical CT scanning of the head was performed without intravenous contrast material. Axial and coronal 5 mm sections were generated. Radiation dose was minimized using automated exposure control DOSE: Total Dose Length Product - DLP 1018.[address] Dose Index - CTDIvol(s) 53.4 mGy. COMPARISON: None available FINDINGS: There is no acute intracranial hemorrhage, mass effect or cortical edema. The ventricles, cisterns and sulci are normal for age. Visualized mastoid air cells and paranasal sinuses are unremarkable. No focal lesions of the bony calvarium. No displaced skull fracture. Trace bilateral mastoid effusions. There is mild focal soft tissue swelling overlying the right lateral frontal bone. IMPRESSION: No evidence of acute intracranial hemorrhage, mass effect or cortical edema. The CT scanner at [facility] is accredited by the [employer] and the scans are performed using protocols designed to limit radiation exposure to as low as reasonably achievable to attain images of sufficient resolution adequate for diagnostic evaluation.
--- NOTE | 2020-03-19 16:19 | Emergency Room Report ---
History of Present Illness General Chief Complaint: Head Injury Present Illness HPI 44-year-old female with no significant past medical history here status post trauma to head that occurred prior to arrival. Patient reports that a metal cabinet fell on her head and she feels dizzy. Minor abrasion noted on right frontal lobe. No active bleeding noted. Denies headache, blurry vision, nausea or vomiting. Denies loss of consciousness. Up-to-date with tetanus shot. Has not taken medication for symptom relief. Has a steady gait. Denies . 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 Patient History Past Medical History: see triage record Past Surgical History: none Pertinent Family History: none Now: No Immunizations: UTD Reviewed Nursing Documentation: PMH: Agreed; PSxH: Agreed Nursing Documentation-PMH Hx Cardiac Problems: No - HYSTERECTOMY, GALLBLADDER STONES, Review of Systems All Other Systems: negative except mentioned in HPI Physical Exam Vital Signs Date Time Temp Pulse Resp B/P (MAP) Pulse Ox O2 Delivery O2 Flow Rate FiO2 03/19/20 14:36 98.2 70 15 113/68 (83) 99 Room Air Sp02 EP Interpretation: reviewed, normal General Appearance: no apparent distress, alert, GCS 15, non-toxic Head: normocephalic, other - Small abrasion nonbleeding noted right frontal lobe Eyes: bilateral eye normal inspection, bilateral eye PERRL ENT: hearing grossly normal, normal pharynx, no angioedema, normal voice Neck: full range of motion, supple/symm/no masses Respiratory: chest non-tender, lungs clear, normal breath sounds, speaking full sentences Cardiovascular #1: regular rate, rhythm, no edema Gastrointestinal: non-distended Musculoskeletal: back normal, gait/station normal Neurologic: alert, motor strength/tone normal, oriented x3, sensory intact, responsive, speech normal Psychiatric: judgement/insight normal, memory normal, mood/affect normal, no suicidal/homicidal ideation Skin: abrasion - Nonbleeding, right frontal lobe Lymphatic: no adenopathy Medical Decision Making PA Attestation All my diagnosis and treatment plans were reviewed ad discussed with my supervising physician Dr. Pierre Diagnostic Impression: Primary Impression: Head contusion Additional Impression: Abrasion ER Course 44-year-old female with no significant past medical history here status post tra lissette to head that occurred prior to arrival. Patient reports that a metal cabinet fell on her head and she feels dizzy. Minor abrasion noted on right frontal lobe. No active bleeding noted. Denies headache, blurry vision, nausea or vomiting. Denies loss of consciousness. Up-to-date with tetanus shot. Has not taken medication for symptom relief. Has a steady gait. Denies . Ddx considered but are not limited to: cerebral hematoma, concussion, skull fracture, head contusion Vital signs: are WNL, pt. is afebrile H&PE are most consistent with: Head contusion, abrasion ORDERS: head CT no contrast, Motrin, mupirocin ointment ED INTERVENTIONS: None required at this time. DISCHARGE: At this time pt. is stable for d/c to home. Will provide printed patient care instructions, and any necessary prescriptions. Care plan and follow up instructions have been discussed with the patient prior to discharge. Patient take medication as directed, follow primary care provider, if worsening symptoms return to the emergency room CT/MRI/US Diagnostic Results CT/MRI/US Diagnostic Results : Imaging Test Ordered: Head CT no contrast Impression No intracranial bleed, no skull fracture Last Vital Signs Date Time Temp Pulse Resp B/P (MAP) Pulse Ox O2 Delivery O2 Flow Rate FiO2 03/19/20 15:03 98.2 70 15 113/68 99 Room Air Disposition: HOME, SELF-CARE Condition: Stable Scripts Ibuprofen* (MOTRIN*) 600 Mg Tablet 600 MG ORAL Q6H PRN for For Pain, #30 TAB 0 Refills Prov: Scotty Concepcion 03/19/20 Mupirocin* (MUPIROCIN*) 22 Gm Oint...g. 1 APPLIC TOPIC THREE TIMES A DAY, #22 GM Prov: Scotty Concepcion 03/19/20 Referrals: NOT CHOSEN [facility]/,REFERRING (PCP) Patient Instructions: Abrasion, [id number], Facial or Scalp Contusion, [id number] Additional Instructions: Take medication as directed, follow primary care provider, if worsening symptoms return to the emergency room Scotty Concepcion Mar 19, 2020 16:19
[2020-03-19] MEDS ORDERED: IBUPROFEN600 M1 ORAL (16:20)
[2020-03-19] MEDS ORDERED: MUPIROCIN22 GM TOPIC (16:20)
[2020-03-19 16:35] VITALS: BP 113/68
--- NOTE | 2020-03-19 16:35 | NUR ---
ED Nurse Note: Pt cleared by health care Provider for discharge. DC instructions/prescription was given and explained to pt and verbalized understanding of teachings. All medical deviecs such as ID band removed. Pt is AAO x4, ambulatory and left with all personal belongings.
== END 2020-03-19 16:35 | disposition home or self-care (01) ==
LOC: EMR 15:08
DX: S00.93XA Contusion of unspecified part of head, initial encounter (principal); S00.91XA Abrasion of unspecified part of head, initial encounter; W20.8XXA Other cause of strike by thrown, projected or falling object, initial encounter; Y92.9 Unspecified place or not applicable; Z90.710 Acquired absence of both cervix and uterus
CPT/HCPCS: 70450; Z7502; 99284